=== PATIENT | female | born 1945 | race Caucasian/White ===

== ENCOUNTER → 2016-08-27 | Outpatient (CLI) | payer MEDICARE, OTHER | DX: M25.572 Pain in left ankle and joints of left foot (principal); M80.00XA Age-related osteoporosis with current pathological fracture, unspecified site, initial encounter for fracture; Z78.0 Asymptomatic menopausal state; Z88.1 Allergy status to other antibiotic agents | CPT/HCPCS: 73700; 77080 ==

== ENCOUNTER → 2016-09-10 | Outpatient (CLI) | payer MEDICARE, OTHER ==
[2016-09-10 12:28] LABS: HEMOGLOBIN 14.3 gm/dl (12.3-15.3); WHITE BLOOD COUNT 4.5 K/UL (4.5-11.0)
[2016-09-10 12:53] LABS: BUN/CREATININE RATIO 18 (0-10)
== END ==
LOC: LAB 10:49
PROVIDERS: Emergency Medicine
DX: E11.65 Type 2 diabetes mellitus with hyperglycemia (principal); E11.69 Type 2 diabetes mellitus with other specified complication; E55.9 Vitamin D deficiency, unspecified; E78.2 Mixed hyperlipidemia; I10 Essential (primary) hypertension; J06.9 Acute upper respiratory infection, unspecified; K21.9 Gastro-esophageal reflux disease without esophagitis; K74.69 Other cirrhosis of liver; M12.862 Other specific arthropathies, not elsewhere classified, left knee; M13.872 Other specified arthritis, left ankle and foot; R53.83 Other fatigue; M79.652 Pain in left thigh
CPT/HCPCS: 36415; 80053; 80061; 82043; 82570; 83036; 83704; 85027

== ENCOUNTER → 2016-10-07 | Outpatient (CLI) | payer MEDICARE, OTHER | LOC: KOH-I 11:30 | DX: M84.372A Stress fracture, left ankle, initial encounter for fracture (principal); M76.71 Peroneal tendinitis, right leg; R60.0 Localized edema | CPT/HCPCS: 73721 ==

== ENCOUNTER → 2020-07-03 | Outpatient (CLI) | payer MEDICARE, OTHER ==
[~2020-07-03] MED LIST: CARTIA XT120 MG PO; DILTIAZEM 24HR180 M1 PO; ELIQUIS2.5 MG PO; ELIQUIS5 MG PO; FIBRIK CAPSULE1 EACH PO; FOLGARD TABLET1 EACH PO; HYDROCHLOROTHIA25 MG PO; HYDROCODON-ACE1 EAC4 PO; JANUMET 50-5001 EACH PO; MEGA BIOTIN10000 MCG PO; MULTAQ 400 MG400 MG PO; NEXIUM40 MG PO; TOPROL XL25 MG PO; VENTOLIN HFA 66.7 GM INH
== END ==
LOC: LAB 15:43
DX: R06.02 Shortness of breath (principal)
CPT/HCPCS: 36415; 83880; 85379

== ENCOUNTER → 2020-07-11 | Outpatient (CLI) | payer MEDICARE, OTHER | LOC: RAD 15:11 | DX: R06.02 Shortness of breath (principal) | CPT/HCPCS: 71046 ==

== ENCOUNTER 2020-08-04 15:06 | Emergency (ER) | payer OTHER, MEDICARE ==
[~2020-08-04 15:06] MED LIST changes: -HYDROCODON-ACE1 EAC4 PO
[2020-08-04] MEDS ORDERED: HYDROCODON-ACE1 EAC4 PO (18:40)
== END 2020-08-04 19:10 | disposition home or self-care (01) ==
LOC: ER1 15:06
DX: S32.028A Other fracture of second lumbar vertebra, initial encounter for closed fracture (principal); I48.91 Unspecified atrial fibrillation; E11.9 Type 2 diabetes mellitus without complications; Z87.19 Personal history of other diseases of the digestive system; Z79.01 Long term (current) use of anticoagulants; V44.5XXA Car driver injured in collision with heavy transport vehicle or bus in traffic accident, initial encounter; Y92.410 Unspecified street and highway as the place of occurrence of the external cause
CPT/HCPCS: 72131; 99284

== ENCOUNTER → 2020-09-11 | Outpatient (CLI) | payer MEDICARE, OTHER ==
[~2020-09-11] MED LIST changes: +HYDROCODON-ACE1 EAC4 PO
[2020-09-11 12:44] LABS: HEMOGLOBIN 9.3 gm/dl (12.3-15.3); RED BLOOD COUNT 4.46 M/UL (4.00-5.10); WHITE BLOOD COUNT 3.4 K/UL (4.5-11.0)
[2020-09-11 13:04] LABS: BUN/CREATININE RATIO 15 (0-10)
== END ==
LOC: LAB 11:00
PROVIDERS: Emergency Medicine
DX: E78.2 Mixed hyperlipidemia (principal); I10 Essential (primary) hypertension; R06.02 Shortness of breath; E11.9 Type 2 diabetes mellitus without complications; Z88.0 Allergy status to penicillin; Z88.8 Allergy status to other drugs, medicaments and biological substances
CPT/HCPCS: 36415; 80053; 83036; 85025

== ENCOUNTER → 2020-09-27 | Outpatient (CLI) | payer MEDICARE, OTHER | LOC: HEART 5 15:00 | DX: I48.91 Unspecified atrial fibrillation (principal); R00.2 Palpitations ==

== ENCOUNTER → 2020-10-22 | Outpatient (CLI) | payer MEDICARE, OTHER ==
[2020-10-22 10:52] LABS: HEMOGLOBIN 9.1 gm/dl (12.3-15.3); RED BLOOD COUNT 4.51 M/UL (4.00-5.10); WHITE BLOOD COUNT 3.5 K/UL (4.5-11.0)
[2020-10-22 11:17] LABS: BUN/CREATININE RATIO 14 (0-10)
== END ==
LOC: LAB 10:08
PROVIDERS: Emergency Medicine
DX: E78.2 Mixed hyperlipidemia (principal); E11.9 Type 2 diabetes mellitus without complications; I10 Essential (primary) hypertension; R30.0 Dysuria
CPT/HCPCS: 36415; 80053; 82607; 82728; 83540; 83550; 84443; 85025

== ENCOUNTER → 2020-12-05 | Outpatient (CLI) | payer MEDICARE, OTHER ==
[2020-12-05 13:54] LABS: HEMOGLOBIN 12.5 gm/dl (12.3-15.3); WHITE BLOOD COUNT 3.4 K/UL (4.5-11.0)
== END ==
LOC: LAB 12:07
PROVIDERS: Emergency Medicine
DX: I10 Essential (primary) hypertension (principal); I48.11 Longstanding persistent atrial fibrillation; E78.2 Mixed hyperlipidemia; E11.9 Type 2 diabetes mellitus without complications; M54.5 Low back pain; D50.0 Iron deficiency anemia secondary to blood loss (chronic)
CPT/HCPCS: 36415; 85025

== ENCOUNTER → 2021-04-02 | Outpatient (CLI) | payer MEDICARE, OTHER ==
[2021-04-02 11:40] LABS: RED BLOOD COUNT 4.87 M/UL (4.00-5.10); WHITE BLOOD COUNT 3.3 K/UL (4.5-11.0)
[2021-04-02 12:14] LABS: BUN/CREATININE RATIO 12 (0-10)
[2021-04-03 11:14] LABS: CREATININE, URINE 235.8 mg/dL (Not Estab.)
[2021-04-04 11:14] LABS: CHOLESTEROL, TOTAL 198 mg/dL (100-199); HDL SIZE 9.5 nm (>=9.2); HDL-C 54 mg/dL (>39); HDL-P (TOTAL) 29.3 umol/L (>=30.5); LARGE HDL-P 7.7 umol/L (>=4.8); LARGE VLDL-P 3.9 nmol/L (<=2.7); LDL SIZE 21.7 nm (>20.5); LDL SIZE 21.7 nm (>=20.8); LDL-C 119 mg/dL (0-99); LDL-P 1163 nmol/L (<1000); LP-IR SCORE 35 (<=45); SMALL LDL-P 159 nmol/L (<=527); TRIGLYCERIDES 142 mg/dL (0-149); VLDL SIZE 44.9 nm (<=46.6)
== END ==
LOC: LAB 10:45
PROVIDERS: Emergency Medicine
DX: E78.2 Mixed hyperlipidemia (principal); E11.9 Type 2 diabetes mellitus without complications; I10 Essential (primary) hypertension; D64.89 Other specified anemias
CPT/HCPCS: 36415; 80053; 80061; 82043; 82570; 83036; 83704; 84443; 84550; 85025

== ENCOUNTER → 2021-06-25 | Outpatient (CLI) | payer MEDICARE, OTHER | LOC: KOH-I 15:00 | DX: S06.0X0D Concussion without loss of consciousness, subsequent encounter (principal); S00.03XA Contusion of scalp, initial encounter; W08.XXXD Fall from other furniture, subsequent encounter; I10 Essential (primary) hypertension; E78.2 Mixed hyperlipidemia; I48.21 Permanent atrial fibrillation; E11.9 Type 2 diabetes mellitus without complications | CPT/HCPCS: 70450; 70486 ==

== ENCOUNTER → 2021-07-01 | Outpatient (CLI) | payer MEDICARE, OTHER ==
[2021-07-01 13:02] LABS: HEMOGLOBIN 13.9 gm/dl (12.3-15.3); RED BLOOD COUNT 5.04 M/UL (4.00-5.10); WHITE BLOOD COUNT 4.1 K/UL (4.5-11.0)
[2021-07-01 13:31] LABS: BUN/CREATININE RATIO 15 (0-10)
== END ==
LOC: LAB 11:28
PROVIDERS: Emergency Medicine
DX: E11.9 Type 2 diabetes mellitus without complications (principal); E78.2 Mixed hyperlipidemia; I10 Essential (primary) hypertension; I48.21 Permanent atrial fibrillation; S06.0X0D Concussion without loss of consciousness, subsequent encounter; W08.XXXD Fall from other furniture, subsequent encounter
CPT/HCPCS: 36415; 80053; 83036; 84550; 85025

== ENCOUNTER → 2021-09-26 | Outpatient (CLI) | payer MEDICARE, OTHER ==
[2021-09-26 11:00] LABS: HEMOGLOBIN 9.5 gm/dl (12.3-15.3); RED BLOOD COUNT 3.34 M/UL (4.00-5.10); WHITE BLOOD COUNT 3.6 K/UL (4.5-11.0)
== END ==
LOC: LAB 10:27
PROVIDERS: Emergency Medicine
DX: D64.89 Other specified anemias (principal); D50.0 Iron deficiency anemia secondary to blood loss (chronic)
CPT/HCPCS: 85027

== ENCOUNTER → 2021-10-22 | Outpatient (CLI) | payer MEDICARE, OTHER ==
[2021-10-22 17:16] LABS: RED BLOOD COUNT 4.6 M/UL (4.00-5.10); WHITE BLOOD COUNT 3.5 K/UL (4.5-11.0)
[2021-10-22 17:40] LABS: BUN/CREATININE RATIO 18 (0-10)
== END ==
LOC: LAB 16:35
PROVIDERS: Emergency Medicine
DX: R23.3 Spontaneous ecchymoses (principal)
CPT/HCPCS: 36415; 80053; 85025; 85652

== ENCOUNTER → 2021-10-31 | Outpatient (CLI) | payer MEDICARE, OTHER ==
[2021-10-31 10:00] LABS: HEMOGLOBIN 13.8 gm/dl (12.3-15.3); RED BLOOD COUNT 4.91 M/UL (4.00-5.10); WHITE BLOOD COUNT 3.2 K/UL (4.5-11.0)
== END ==
LOC: LAB 09:41
PROVIDERS: Emergency Medicine
DX: R23.3 Spontaneous ecchymoses (principal); D50.0 Iron deficiency anemia secondary to blood loss (chronic)
CPT/HCPCS: 36415; 85025

== ENCOUNTER → 2022-02-03 | Outpatient (CLI) | payer MEDICARE, OTHER ==
[2022-02-03 14:03] LABS: BUN/CREATININE RATIO 19 (0-10)
== END ==
LOC: LAB 13:04
PROVIDERS: Emergency Medicine
DX: E78.2 Mixed hyperlipidemia (principal); E11.9 Type 2 diabetes mellitus without complications; I10 Essential (primary) hypertension
CPT/HCPCS: 36415; 80053; 83036

== ENCOUNTER → 2022-03-13 | Outpatient (CLI) | payer MEDICARE, OTHER ==
[2022-03-13 18:33] LABS: HEMOGLOBIN 13.5 gm/dl (12.3-15.3); RED BLOOD COUNT 4.6 M/UL (4.00-5.10); WHITE BLOOD COUNT 5.7 K/UL (4.5-11.0)
[2022-03-13 19:37] LABS: BUN/CREATININE RATIO 19 (0-10)
== END ==
LOC: LAB 16:54
PROVIDERS: Nurse Practitioner
DX: M79.605 Pain in left leg (principal); M79.604 Pain in right leg; R22.43 Localized swelling, mass and lump, lower limb, bilateral
CPT/HCPCS: 36415; 80053; 82550; 85025; 85379; 86140